=== PATIENT | female | born 1985 | race Caucasian/White ===

== ENCOUNTER 2019-07-18 12:03 | Emergency (ER) | payer SELFPAY ==
[~2019-07-18] VITALS: Ht 160 cm; Wt 64.1 kg
[2019-07-18 12:11] VITALS: BP 125/69
--- NOTE | 2019-07-18 12:40 | NUR ---
PT TAKEN TO BED 4.
--- NOTE | 2019-07-18 12:45 | NUR ---
PT TO ED WITH C/O CP RADIATING TO NECK X 1000 TODAY. DENIES SOB. NO OBVIOUS DISTRESS NOTED. SPEECH CLEAR. REPORTS PAIN TIGHTENING TO LEFT SIDE OF CHEST AND NECK. DENIES ANY RECENT INJURY/TRAUMA. PT IN BED FOR MD NICHOLAS. ATTATCHED TO [facility] MONITORING.
[2019-07-18 14:17] LABS: BASOPHILS % (AUTO) 0.5 % (0.0-2.0); EOSINOPHILS # (AUTO) 0.2 K/uL (0-0.4); EOSINOPHILS % (AUTO) 1.9 % (0.0-4.0); HEMATOCRIT 36.4 % (36-48); HEMOGLOBIN 12.3 g/dL (12.0-16.0); LYMPHOCYTES # (AUTO) 2.6 K/uL (2.5-16.5); LYMPHOCYTES % (AUTO) 29.5 % (20.5-51.1); MEAN CORPUSCULAR HEMOGLOBIN 30 pg (27-31); MEAN CORPUSCULAR HGB CONC 34 g/dL (33-37); MEAN CORPUSCULAR VOLUME 89.7 fL (80-94); MONOCYTES # (AUTO) 0.5 K/uL (0.8-1.0); MONOCYTES % (AUTO) 5.4 % (1.7-9.3); NEUTROPHILS # (AUTO) 5.6 K/uL (1.8-7.7); NEUTROPHILS % (AUTO) 62.7 % (42.2-75.2); PLATELET COUNT (AUTO) 259 K/uL (140-450); RED BLOOD CELL COUNT(AUTO) 4.06 MIL/uL (4.20-5.40); RED CELL DISTRIBUTION WIDTH 14.1 % (11.6-13.7)
[2019-07-18 14:38] LABS: ALBUMIN 4.1 g/dL (3.4-5.0); ANION GAP 12.3 (8-16); CARBON DIOXIDE 25.6 mmol/L (21-32); CREATININE 0.5 mg/dL (0.6-1.3); POTASSIUM 3.9 mmol/L (3.5-5.1); TOTAL BILIRUBIN 1.8 mg/dL (0.0-1.0)
--- NOTE | 2019-07-18 15:35 | NUR ---
IV removed, catheter intact and site benign. Applied folded 4x4 gauze and tape to stop bleeding.
[2019-07-18 15:41] VITALS: BP 100/60
== END 2019-07-18 15:42 | disposition home or self-care (01) ==
LOC: MED 12:03
DX: R07.89 Other chest pain (principal); R06.02 Shortness of breath
CPT/HCPCS: 36415; 71045; 80053; 83880; 84484; 85025; 99284; Q0092

== ENCOUNTER 2023-11-07 19:56 | Emergency (ER) | payer MEDICAID, OTHER ==
[~2023-11-07] VITALS: Ht 157.5 cm; Wt 61.2 kg
[2023-11-07 19:59] VITALS: BP 138/82; PULSE 92; RESP 17; TEMP 98.3; O2SAT 100
[2023-11-07 23:42] VITALS: BP 138/82; PULSE 92; RESP 17; TEMP 98.3; O2SAT 100
== END 2023-11-07 23:40 | disposition left against medical advice (07) ==
LOC: MED 19:56
DX: R07.9 Chest pain, unspecified (principal); Z53.21 Procedure and treatment not carried out due to patient leaving prior to being seen by health care provider
CPT/HCPCS: 93005; 99281